=== PATIENT | female | born 1935 | race Hispanic/Latino ===

== ENCOUNTER → 2017-08-13 | Outpatient (CLI) | payer OTHER ==
[~2017-08-13] MED LIST: ASPI-1181 PO; ATEN50TA PO; ATOR40TA71 PO; CLOP75TA14 PO; DOXY100C2 PO; GABA-529 PO; QUIN20TA26 PO; SERT100T12 PO
== END | disposition home or self-care (01) ==
LOC: EDSTATUS 13:30 → SHCH 13:36
PROVIDERS: ATTEND Internal Medicine Cardiovascular Disease
DX: I07.1 Rheumatic tricuspid insufficiency (principal); I31.3 Pericardial effusion (noninflammatory)
CPT/HCPCS: 93306

== ENCOUNTER 2017-08-21 05:59 | Day surgery (SDC) | payer OTHER ==
[2017-08-17 10:00] VITALS: BP 119/47
[2017-08-17 10:24] LABS: BASOPHILS % (AUTO) 0.8 % (0.0-5.0); HEMATOCRIT 32.7 % (36-48); LYMPHOCYTES % (AUTO) 28.3 % (21.0-51.0); MEAN CORPUSCULAR HEMOGLOBIN 32.7 pg (27.0-33.0); MEAN CORPUSCULAR HGB CONC 35.1 g/dL (32.0-36.0); MEAN CORPUSCULAR VOLUME 93.1 fL (79-99); MONOCYTES % (AUTO) 8.6 % (3.0-13.0); NEUTROPHILS % (AUTO) 60.3 % (40.0-77.0); PLATELET COUNT (AUTO) 162 K/uL (130-400); RED BLOOD CELL COUNT(AUTO) 3.51 MIL/uL (4.00-5.50); RED CELL DISTRIBUTION WIDTH 13.7 % (11.0-15.5); WHITE BLOOD COUNT (AUTO) 4.4 K/uL (4.8-10.8)
[2017-08-17 10:42] LABS: CREATININE 0.6 mg/dL (0.5-1.5); PARTIAL THROMBOPLASTIN TIME 29.6 SEC (26.3-35.5); POTASSIUM 4.5 mmol/L (3.5-5.1); PROTHROMBIN TIME 10.5 SEC (9.6-11.6)
[2017-08-21] VITALS (8 sets, daily range): BP systolic 91–120; BP diastolic 44–55
[~2017-08-21] VITALS: Ht 154.9 cm; Wt 89.9 kg
[~2017-08-21 05:59] MED LIST changes: -DOXY100C2 PO; +SODIUM CHLORIDE 0.9% 1000ML 1,000 ML IV SCH
[2017-08-21] MEDS ORDERED: CEFAZOLIN SODIUM 1 GM VIAL ONE (07:10)
[2017-08-21] MEDS ORDERED: BUPIVACAINE/PF 0.25% 30ML VIAL IJ ONE (07:10)
[2017-08-21] MEDS ORDERED: LIDOCAINE HCL MPF 1% 5ML VIAL ONE (07:26)
[2017-08-21] MEDS ORDERED: MEPERIDINE-PF 25 MG/ML SYG ONE ×2 (07:26→07:47)
[2017-08-21] MEDS ORDERED: MIDAZOLAM HCL 1 MG/ML 2ML VIAL ONE ×2 (07:27→07:47)
[2017-08-21] MEDS ORDERED: OCTYL 2-CYANOACRYLATE 1 EACH TP ONE (08:15)
[2017-08-21] MEDS ORDERED: DOXY100C2 PO (08:35)
[2017-08-21] MEDS ORDERED: ACETAMINOPHEN-CODEINE 300/30MG TAB PO PRN (08:45)
[2017-08-21] MEDS ORDERED: ACETAMINOPHEN 325 MG TAB PO PRN (08:45)
[2017-08-21] MEDS ORDERED: ONDANSETRON HCL 4 MG/2 ML VIAL IV PRN (08:45)
== END 2017-08-21 13:10 | disposition home or self-care (01) ==
LOC: DAH 05:59
PROVIDERS: ATTEND Internal Medicine Cardiovascular Disease
DX: I49.5 Sick sinus syndrome (principal); I10 Essential (primary) hypertension; M19.90 Unspecified osteoarthritis, unspecified site; Z98.890 Other specified postprocedural states; E78.5 Hyperlipidemia, unspecified; M54.17 Radiculopathy, lumbosacral region; E66.9 Obesity, unspecified; Z95.0 Presence of cardiac pacemaker; Z86.73 Personal history of transient ischemic attack (TIA), and cerebral infarction without residual deficits; Z79.899 Other long term (current) drug therapy; Z68.32 Body mass index [BMI] 32.0-32.9, adult
CPT/HCPCS: 33228; 36415; 80048; 85025; 85610; 85730; 93005; A4606; C1785; J0690; J2175 ×2; J2250 ×2; J3490 ×2; 99156; 99157

== ENCOUNTER 2018-06-22 22:05 | Emergency (ER) | payer OTHER ==
[~2018-06-22 22:05] MED LIST changes: +DOXY100C2 PO; -SODIUM CHLORIDE 0.9% 1000ML 1,000 ML IV SCH
[2018-06-22] MEDS ORDERED: ONDANSETRON HCL 4 MG/2 ML VIAL ONE (22:25)
[2018-06-22 22:45] LABS: BASOPHILS % (AUTO) 0.9 % (0.0-5.0); EOSINOPHILS % (AUTO) 1.3 % (0.0-8.0); HEMATOCRIT 33.6 % (36-48); LYMPHOCYTES % (AUTO) 30.7 % (21.0-51.0); MEAN CORPUSCULAR HEMOGLOBIN 31.6 pg (27.0-33.0); MEAN CORPUSCULAR HGB CONC 33.6 g/dL (32.0-36.0); MEAN CORPUSCULAR VOLUME 94.1 fL (79-99); MONOCYTES % (AUTO) 8.5 % (3.0-13.0); NEUTROPHILS % (AUTO) 58.6 % (40.0-77.0); NUCLEATED RED BLOOD CELLS 0.1 % (0.0-0.19); PLATELET COUNT (AUTO) 155 K/uL (130-400); RED BLOOD CELL COUNT(AUTO) 3.57 MIL/uL (4.00-5.50); RED CELL DISTRIBUTION WIDTH 13.8 % (11.0-15.5); WHITE BLOOD COUNT (AUTO) 4.7 K/uL (4.8-10.8)
[2018-06-22 22:54] LABS: APPEARANCE,URINE Clear (CLEAR); BILIRUBIN,URINE Negative (NEGATIVE); COLOR,URINE Yellow (YELLOW); GLUCOSE, URINE (UA) Negative (NEGATIVE); KETONES,URINE Negative (NEGATIVE); LEUKOCYTE ESTERASE ,URINE Trace (NEGATIVE); NITRATE,URINE Negative (NEGATIVE); OCCULT BLOOD,URINE Negative (NEGATIVE); PH,URINE 6.5 (5.0-8.0); PROTEIN,URINE Negative (NEGATIVE)
[2018-06-22 23:03] LABS: INR 0.98 (0.85-1.15); PARTIAL THROMBOPLASTIN TIME 29.6 SEC (26.3-35.5); PROTHROMBIN TIME 10.3 SEC (9.6-11.6)
[2018-06-22 23:15] LABS: CREATININE 0.6 mg/dL (0.5-1.5)
[2018-06-22 23:19] LABS: ALBUMIN 3.7 g/dL (3.5-5.0); BILIRUBIN,TOTAL 0.5 mg/dL (0.2-1.0); TOTAL PROTEIN, SERUM 7.2 g/dL (6.0-8.3)
[2018-06-22 23:25] LABS: BACTERIA,URINE None Seen /HPF (None Seen); RBC,URINE None Seen /HPF (0-1); SQUAMOUS EPITHELIAL CELL,UR Few /HPF (0-2); WBC,URINE None Seen /HPF (0-1)
== END 2018-06-23 00:46 | disposition home or self-care (01) ==
LOC: EDH 22:05
DX: R10.9 Unspecified abdominal pain (principal); R11.2 Nausea with vomiting, unspecified; I25.10 Atherosclerotic heart disease of native coronary artery without angina pectoris; E78.5 Hyperlipidemia, unspecified; I10 Essential (primary) hypertension; Z79.899 Other long term (current) drug therapy
CPT/HCPCS: 36415; 71045; 74176; 80053; 81001; 82150; 82550; 83690; 85025; 85610; 85730; 87804 ×2; 93005; 96374; 99285; J2405

== ENCOUNTER → 2019-10-02 | Outpatient (CLI) | payer OTHER ==
[~2019-10-02] MED LIST changes: -ASPI-1181 PO; +ASPI-1443 PO
== END | disposition home or self-care (01) ==
LOC: SHCH 09:49
PROVIDERS: ATTEND Internal Medicine Cardiovascular Disease
DX: I35.8 Other nonrheumatic aortic valve disorders (principal); I65.23 Occlusion and stenosis of bilateral carotid arteries; I10 Essential (primary) hypertension
CPT/HCPCS: 93306; 93880

== ENCOUNTER 2020-04-26 14:02 | Observation (INO) | payer OTHER ==
[~2020-04-26] VITALS: Ht 162.6 cm; Wt 87.6 kg
[~2020-04-26 14:02] MED LIST changes: +SERT-440 PO; -SERT100T12 PO
[2020-04-26 15:05] LABS: BASOPHILS % (AUTO) 0.5 % (0.0-5.0); EOSINOPHILS % (AUTO) 1.1 % (0.0-8.0); HEMATOCRIT 29.7 % (36-48); LYMPHOCYTES % (AUTO) 18.2 % (21.0-51.0); MEAN CORPUSCULAR HEMOGLOBIN 30.4 pg (27.0-33.0); MEAN CORPUSCULAR HGB CONC 32.7 g/dL (32.0-36.0); MEAN CORPUSCULAR VOLUME 93.1 fL (79-99); MONOCYTES % (AUTO) 9.7 % (3.0-13.0); NEUTROPHILS % (AUTO) 70.3 % (40.0-77.0); PLATELET COUNT (AUTO) 133 K/uL (130-400); RED BLOOD CELL COUNT(AUTO) 3.19 MIL/uL (4.00-5.50); RED CELL DISTRIBUTION WIDTH 13.3 % (11.0-15.5); WHITE BLOOD COUNT (AUTO) 6.4 K/uL (4.8-10.8)
[2020-04-26 15:11] LABS: INR 1.04 (0.85-1.15); PROTHROMBIN TIME 11.3 SEC (9.6-11.6)
[2020-04-26 15:15] LABS: CREATININE 0.6 mg/dL (0.5-1.5); POTASSIUM 3.6 mmol/L (3.5-5.1)
[2020-04-26 15:19] LABS: ALBUMIN 3.1 g/dL (3.5-5.0); TOTAL PROTEIN, SERUM 6.9 g/dL (6.0-8.3)
[2020-04-26] MEDS ORDERED: ONDANSETRON HCL 4 MG/2 ML VIAL ONE (16:01)
[2020-04-26] MEDS ORDERED: MORPHINE SULFATE 4 MG/1ML SYG ONE (16:02)
[2020-04-26] MEDS ORDERED: ONDANSETRON HCL 4 MG/2 ML VIAL IV PRN (20:00)
[2020-04-26] MEDS ORDERED: MORPHINE SULFATE 2 MG/ML 1ML SYG IV PRN (20:00)
[2020-04-26] MEDS ORDERED: DiphenhydrAMINE HCL 50 MG/ML VIAL IV PRN (20:00)
[2020-04-26] MEDS ORDERED: ACETAMINOPHEN 325 MG TAB PO PRN ×2 (20:00)
[2020-04-26] MEDS: SODIUM CHLORIDE 0.9% 1000ML 1,000 ML IV SCH (20:30)
[2020-04-26] MEDS: KETOROLAC TROMETHAMINE 15MG/ML IM SCH (21:00)
[2020-04-26] MEDS: ATORVASTATIN CALCIUM 20 MG TABLET PO SCH (21:00)
[2020-04-27] MEDS ORDERED: SODIUM CHLORIDE 0.9% 1000ML 1,000 ML IV ONE (00:55)
[2020-04-27 02:55] VITALS: BP 129/55
[2020-04-27] MEDS: KETOROLAC TROMETHAMINE 15MG/ML IM SCH ×4 (03:00→21:00)
[2020-04-27] MEDS: HYDROMORPHONE HCL 0.5 MG/0.5 ML ML IV PRN ×2 (03:25→14:37)
[2020-04-27] MEDS ORDERED: CLOP75TA32 PO (03:44)
[2020-04-27] MEDS: SODIUM CHLORIDE 0.9% 1000ML 1,000 ML IV SCH ×2 (06:30→19:23)
[2020-04-27 08:25] VITALS: BP 90/52
[2020-04-27] MEDS: LISINOPRIL 20 MG TABLET PO SCH (09:00)
[2020-04-27] MEDS ORDERED: SERTRALINE HCL 50 MG TABLET PO SCH (09:00)
[2020-04-27] MEDS: FAMOTIDINE/PF 20 MG/2 ML VIAL IV SCH (09:14)
[2020-04-27] MEDS: ATORVASTATIN CALCIUM 20 MG TABLET PO SCH (09:15)
[2020-04-27] MEDS ORDERED: SERTRALINE HCL 50 MG TABLET PO PRN (10:15)
[2020-04-27 11:27] VITALS: BP 105/49
[2020-04-27 16:31] VITALS: BP 103/52
[2020-04-27 20:00] VITALS: BP 94/47
[2020-04-27] MEDS: ATENOLOL 50 MG TABLET PO SCH (21:00)
[2020-04-27 23:24] VITALS: BP 110/55
[2020-04-28] MEDS: KETOROLAC TROMETHAMINE 15MG/ML IM SCH ×4 (03:00→20:53)
[2020-04-28] MEDS: SODIUM CHLORIDE 0.9% 1000ML 1,000 ML IV SCH (03:17)
[2020-04-28 03:53] VITALS: BP 108/51
[2020-04-28 05:44] LABS: HEMATOCRIT 26.1 % (36-48); MEAN CORPUSCULAR HEMOGLOBIN 30.7 pg (27.0-33.0); MEAN CORPUSCULAR HGB CONC 32.6 g/dL (32.0-36.0); MEAN CORPUSCULAR VOLUME 94.2 fL (79-99); RED BLOOD CELL COUNT(AUTO) 2.77 MIL/uL (4.00-5.50); RED CELL DISTRIBUTION WIDTH 13.3 % (11.0-15.5); WHITE BLOOD COUNT (AUTO) 5.2 K/uL (4.8-10.8)
[2020-04-28 06:10] LABS: ALBUMIN 2.5 g/dL (3.5-5.0); BILIRUBIN,TOTAL 0.8 mg/dL (0.2-1.0); CREATININE 0.5 mg/dL (0.5-1.5); MAGNESIUM 1.7 mg/dL (1.80-2.40); POTASSIUM 3.9 mmol/L (3.5-5.1); TOTAL PROTEIN, SERUM 5.8 g/dL (6.0-8.3)
[2020-04-28 08:14] VITALS: BP 108/51
[2020-04-28] MEDS: FAMOTIDINE/PF 20 MG/2 ML VIAL IV SCH (08:27)
[2020-04-28] MEDS: LISINOPRIL 20 MG TABLET PO SCH (08:28)
[2020-04-28] MEDS: ATORVASTATIN CALCIUM 20 MG TABLET PO SCH (08:28)
[2020-04-28 11:41] VITALS: BP 114/51
[2020-04-28 16:48] VITALS: BP 115/53
[2020-04-28 20:00] VITALS: BP 109/53
[2020-04-28] MEDS: ATENOLOL 50 MG TABLET PO SCH (21:00)
== END 2020-04-28 21:52 ==
LOC: EDH 14:02 → EDHIP 19:48 → 3AH 04-27 02:30
PROVIDERS: ADMIT Internal Medicine Critical Care Medicine; ATTEND Internal Medicine Critical Care Medicine
DX: S32.82XA Multiple fractures of pelvis without disruption of pelvic ring, initial encounter for closed fracture (principal); I48.20 Chronic atrial fibrillation, unspecified; S40.012A Contusion of left shoulder, initial encounter; E66.9 Obesity, unspecified; I25.10 Atherosclerotic heart disease of native coronary artery without angina pectoris; I42.9 Cardiomyopathy, unspecified; I10 Essential (primary) hypertension; E78.5 Hyperlipidemia, unspecified; D64.9 Anemia, unspecified; Z95.0 Presence of cardiac pacemaker; Z79.82 Long term (current) use of aspirin; Z79.02 Long term (current) use of antithrombotics/antiplatelets; Z79.899 Other long term (current) drug therapy; Z68.33 Body mass index [BMI] 33.0-33.9, adult; W01.0XXA Fall on same level from slipping, tripping and stumbling without subsequent striking against object, initial encounter; Y93.01 Activity, walking, marching and hiking; Y92.002 Bathroom of unspecified non-institutional (private) residence as the place of occurrence of the external cause
CPT/HCPCS: 36415 ×2; 70450; 72100; 72125; 72131; 72192; 73502; 80053 ×2; 83735; 85025; 85027; 85610; 85730; 96361 ×2; 96372; 96374; 96375; 96376 ×2; 97039 ×2; 97161; 97530; 99285; A4344; A4600; G0378 ×48; G8979; G8981; G8982; G8983; J1170 ×2; J1885 ×2; J2270; J2405; J3490 ×2; J7030 ×2

== ENCOUNTER 2022-08-23 23:37 | Emergency (ER) | payer OTHER, MEDICARE ==
[~2022-08-23 23:37] MED LIST changes: -CLOP75TA14 PO; +CLOP75TA32 PO; -DOXY100C2 PO; -GABA-529 PO; +QUIN20TA PO; -QUIN20TA26 PO
[2022-08-24] MEDS ORDERED: LIDOP TD (02:09)
[2022-08-24] MEDS ORDERED: TRAM50TA4 PO (02:09)
[2022-08-24] MEDS ORDERED: IBUP-1493 PO (02:09)
[2022-08-24] MEDS ORDERED: MAGNESIUM HYDROXIDE 30 ML/UDCUP PO SCH (02:30)
[2022-08-24] MEDS ORDERED: MORPHINE 2 MG SYG IM ONE (02:30)
[2022-08-24] MEDS ORDERED: GABAPENTIN 100 MG CAPSULE PO SCH (02:30)
[2022-08-24 04:30] VITALS: BP 113/64
== END 2022-08-24 05:09 | disposition home or self-care (01) ==
LOC: EDH 23:37
DX: M54.50 Low back pain, unspecified (principal); K59.00 Constipation, unspecified; I10 Essential (primary) hypertension; M47.816 Spondylosis without myelopathy or radiculopathy, lumbar region; M19.90 Unspecified osteoarthritis, unspecified site; Z79.82 Long term (current) use of aspirin; Z79.899 Other long term (current) drug therapy; Z99.3 Dependence on wheelchair
CPT/HCPCS: 99285; 72131; 72192; 73552; 96372; J2270

== ENCOUNTER → 2023-03-01 | Outpatient (CLI) | payer OTHER, MEDICARE ==
[~2023-03-01] MED LIST changes: +IBUP-1493 PO; +LIDOP TD; +TRAM50TA4 PO
== END | disposition home or self-care (01) ==
LOC: SHCH 11:16
PROVIDERS: ATTEND Internal Medicine Cardiovascular Disease
DX: I35.0 Nonrheumatic aortic (valve) stenosis (principal); I11.9 Hypertensive heart disease without heart failure
CPT/HCPCS: 93306